=== PATIENT | male | born 1955 | race African-American/Black ===

== ENCOUNTER 2019-01-18 11:11 | Inpatient (IN) | payer OTHER, MEDICAID ==
[~2019-01-18] VITALS: Ht 172.7 cm; Wt 66.7 kg
[~2019-01-18 11:11] MED LIST: ATEN-60 PO; HYDR12.55 PO; TRAM50TA2 PO
[2019-01-18 11:46] LABS: Basophils # (auto) 0 uL; Basophils % (auto) 0.3 % (0.0-2.0); Eosinophils # (auto) 0.2 uL; Eosinophils % (auto) 3.4 % (0.0-7.0); Hemoglobin 12.5 g/dL (13.5-17.5); Lymphocytes # (auto) 1.9 uL; Lymphocytes % (auto) 33.1 % (10.0-50.0); Mean Corpuscular Hemoglobin 25.6 pg (28.0-32.0); Mean Corpuscular Hgb Conc. 32.8 g/dL (32.0-36.0); Mean Corpuscular Volume 77.9 fL (80.0-100.0); Monocytes # (auto) 0.8 uL; Monocytes % (auto) 13.7 % (0.0-12.0); Neutrophils # (auto) 2.8 uL; Neutrophils % (auto) 49.5 % (37.0-80.0); Nucleated Red Blood Cells % 0.1 %; Platelet Count (auto) 176 10^3/uL (140-450); Red Blood Cells 4.87 10^6/uL (4.5-5.90); Red Cell Distribution Width 13.5 % (11.8-14.3); White Blood Cell 5.6 10^3/uL (4.4-10.8)
[2019-01-18 12:19] LABS: Albumin 3.1 g/dL (3.4-5.0); BUN/Creatinine Ratio 21.9; Calcium 9.7 mg/dL (8.5-10.1); Potassium 3.6 mmol/L (3.5-5.1)
[2019-01-18 12:21] LABS: Bilirubin, Total 0.5 mg/dL (0.2-1.0); Total Protein 6.7 g/dL (6.4-8.2)
[2019-01-18] MEDS ORDERED: MORPHINE SULFATE 4 MG/ML SYR/VIAL IV ONE (12:45)
[2019-01-18] MEDS ORDERED: ONDANSETRON HCL 4 MG/2 ML VIAL IV ONE (12:45)
[2019-01-18] MEDS ORDERED: SODIUM CHLORIDE 0.9% 1,000 ML IV ONE ×2 (12:47)
[2019-01-18 13:16] LABS: Urine Amorphous Crystal FEW /hpf (None Seen); Urine Bacteria FEW /hpf (None Seen); Urine Blood Negative /uL (Negative); Urine Mucus FEW (None Seen); Urine Specific Gravity 1.018 (1.001-1.035); Urine WBC 23 /hpf (0 - 3)
[2019-01-18] MEDS ORDERED: ATOR10TA52 PO (15:51)
[2019-01-18] MEDS ORDERED: HCTZ25T PO (15:51)
[2019-01-18] MEDS ORDERED: NAP500T PO (15:51)
[2019-01-18] MEDS ORDERED: HYDR1CAP27 PO (15:51)
[2019-01-18] MEDS ORDERED: NITROGLYCERIN 0.4 MG SL TAB SL PRN (16:45)
[2019-01-18] MEDS ORDERED: MORPHINE SULF INJ 2 MG/ML SYRINGE 1ML IV PRN (16:45)
[2019-01-18] MEDS ORDERED: cefTRIAXone 1GM/50ML D5W 50 ML IV ONE (17:30)
[2019-01-18] MEDS: SOD CHL 0.9%/ KCL 20MEQ 1,000 ML IV SCH (18:38)
--- NOTE | 2019-01-18 19:50 | NUR ---
Admission Note Pt admitted to room 273-B in stable cond. Pt oriented to room and procedures and POC discussed with pt. Pt verbalizes understanding. Pt is with positive BS in all 4 quadrants and pt denies any abd pain or n/v at this time. Bed is low, wheels are locked, and call light is with in reach. Bed alarm is set for pt safety.
[2019-01-18 21:51] VITALS: BP 159/96
[2019-01-18] MEDS: metroNIDAZOLE 500MG/100ML 100 ML IV SCH (21:51)
[2019-01-18] MEDS: FAMOTIDINE (10MG/ML) 2ML VL IV SCH (21:51)
[2019-01-19] VITALS (7 sets, daily range): BP systolic 150–167; BP diastolic 79–98
[2019-01-19] MEDS: SOD CHL 0.9%/ KCL 20MEQ 1,000 ML IV SCH (02:45)
[2019-01-19] MEDS: metroNIDAZOLE 500MG/100ML 100 ML IV SCH ×2 (06:24→12:06)
--- NOTE | 2019-01-19 07:10 | NUR ---
Opening Shift Note Assumed care of patient, awake and alert. Patient NPO. No S/S of distress/SOB or pain. Instructed on POC and to call for assist PRN, bed in locked and lowest position and call light within reach. Will continue to monitor for changes Q1hr and PRN.
[2019-01-19] MEDS ORDERED: MORPHINE SULF INJ 2 MG/ML SYRINGE 1ML ONE (08:33)
[2019-01-19] MEDS: MORPHINE SULF INJ 2 MG/ML SYRINGE 1ML IV PRN (08:46)
[2019-01-19] MEDS ORDERED: cefTRIAXone 1GM/50ML D5W 50 ML IV SCH (09:00)
[2019-01-19] MEDS: FAMOTIDINE (10MG/ML) 2ML VL IV SCH ×2 (10:02→22:16)
--- NOTE | 2019-01-19 14:32 | NUR ---
Dr. Barboza bedside with patient discussing plan of care.
[2019-01-19] MEDS ORDERED: ATENOLOL 25 MG TAB PO ONE (15:15)
[2019-01-19] MEDS: TAMSULOSIN HYDROCHLORIDE 0.4 MG CAP PO SCH (18:05)
--- NOTE | 2019-01-19 19:05 | NUR ---
OPENING NOTE- NOC SHIFT PATIENT IS ALERT AND ORIENTED X4. PATIENT IS LYING FLAT ON BED AND STATES THIS IS HOW HE PREFERS TO SLEEP. BED IS LOCKED IN LOWEST POSITION, BED RAILS ARE UP X2 FOR SAFETY PRECAUTIONS. BEDSIDE TABLE WITH PERSONAL BELONGINGS WITHIN REACH, CALL LIGHT IS WITHIN REACH. DISCUSSED POC WITH PATIENT AND INSTRUCTED PATIENT TO CALL PRN; PATIENT VERBALIZED UNDERSTANDING. WILL CONTINUE TO MONITOR Q1H AND PRN. NO S/SX OF DISTRESS, SOB OR PAIN.
[2019-01-19] MEDS: hydrOXYzine 25 MG TAB or CAP PO SCH (22:16)
[2019-01-20] VITALS (7 sets, daily range): BP systolic 144–158; BP diastolic 82–89
--- NOTE | 2019-01-20 07:15 | NUR ---
ENDORSED PATIENT CARE TO DAY SHIFT NURSE KYLER MACIEL. NO S/SX OF DISTRESS, SOB OR PAIN.
[2019-01-20] MEDS: FAMOTIDINE (10MG/ML) 2ML VL IV SCH ×2 (09:57→21:09)
[2019-01-20] MEDS: ATENOLOL 50 MG TAB PO SCH (09:57)
--- NOTE | 2019-01-20 11:53 | NUR ---
Nutrition Consult/assessment Notes: please see attached link for complete assessment Est. Needs BW 70 [id number] kcal (25-30 kcal/kgBW), 70-84 gms pro (1.0-1.2gms/kgBW). Will continue to monitor pertinent labs and reassess nutrient need prn. Addendum: 01/20/19 at [address] Amended: Links added.
[2019-01-20 12:30] LABS: INR 1.23 (0.9-1.15); Partial Thromboplastin Time 32.3 sec (23.64-32.05)
[2019-01-20] MEDS ORDERED: IOHEXOL 300 MG/ML 100ML BOTTLE IJ ONE (16:45)
[2019-01-20] MEDS: TAMSULOSIN HYDROCHLORIDE 0.4 MG CAP PO SCH (17:01)
--- NOTE | 2019-01-20 19:05 | NUR ---
OPENING NOTE- NOC SHIFT PATIENT IS ALERT AND ORIENTED X4, ANSWERS IN COMPLETE SENTENCES AND MAKES APPROPRIATE EYE CONTACT. BED IS LOCKED AT LOWEST POSITION, BED RAILS UP X2. PATIENT STATES THAT HE PREFERS TO LAY FLAT IN BED; STATES THAT THIS THE COMFORTABLE POSITION IN WHICH HE SLEEPS AT HOME. PATIENT STATES THAT HE HAS NOT BEEN NPO BUT THAT HE WILL BE NPO AT MID NIGHT FOR PLANNED PROCEDURE ON 01/21/19. DISCUSSED POC WITH PATIENT AND INSTRUCTED PATIENT TO CALL PRN; PATIENT VERBALIZED UNDERSTANDING. WILL CONTINUE TO MONITOR Q1H AND PRN. FAMILY AT BEDSIDE.
[2019-01-20] MEDS: MORPHINE SULF INJ 2 MG/ML SYRINGE 1ML IV PRN (20:15)
[2019-01-20] MEDS: ONDANSETRON HCL 4 MG/2 ML VIAL IV PRN (20:15)
--- NOTE | 2019-01-20 20:15 | NUR ---
FAMILY REQUESTS TO SPEAK WITH DOCTOR. FAMILY WANTS UPDATE ON CT SCAN RESULTS AND PLAN OF CARE. PASTOR DRUMMOND IS PATIENT'S NIECE AND NOK, . WILL ALSO ADD PHYSICAL NOTE ON HARD CHART FOR .
[2019-01-20] MEDS: hydrOXYzine 25 MG TAB or CAP PO SCH (21:10)
[2019-01-20] MEDS: LORazepam 2MG/ML-1ML VIAL IV PRN (21:10)
--- NOTE | 2019-01-21 03:32 | NUR ---
NOK PHONE NUMBER CORRECTION. CORRECT NUMBER UPDATED ON SYSTEM AND IS PASTOR DRUMMOND [phone]
[2019-01-21 05:00] VITALS: BP 158/89
--- NOTE | 2019-01-21 06:51 | NUR ---
PATIENT OF FLOOR TO OR
[2019-01-21] MEDS ORDERED: ceFAZolin 1GM/50ML 50 ML IV ONE (07:02)
--- NOTE | 2019-01-21 07:05 | NUR ---
CALLED DANIELLE DRUMMOND [phone] TO MAKE HER AWARE THAT PATIENT WAS SENT TO OR FOR SCHEDULED PROCEDURE.
--- NOTE | 2019-01-21 07:08 | NUR ---
CLOSING NOTE- NOC SHIFT ENDORSED PATIENT CARE TO DAY SHIFT NURSE KYLER MACIEL. PATIENT OFF FLOOR TO OR FOR SCHEDULED PROCEDURE.
[2019-01-21] MEDS ORDERED: LIDOCAINE 1% HCL (LOCAL ANESTH.) INJ 20ML MDV ONE (07:34)
[2019-01-21] MEDS: BUPIVACAINE W/ EPINEPH 0.25% INJ 50ML MDV ONE ×2 (07:34→08:59)
[2019-01-21] MEDS ORDERED: SUCCINYLCHOLINE CHLORIDE 20 MG/ML 10ML VIAL IV ONE (07:42)
[2019-01-21] MEDS ORDERED: MEPERIDINE HCL (50 MG/ML) 1 ML VIAL ONE ×2 (07:46→08:26)
[2019-01-21] MEDS ORDERED: MIDAZOLAM HCL 1MG/1ML-2 ML VIAL ONE (07:46)
[2019-01-21] MEDS ORDERED: fentaNYL CITRATE 100 MCG/2 ML VL ONE (07:46)
[2019-01-21] MEDS ORDERED: LABETALOL HCL 5 MG/ML 4ML SYRINGE IV PRN (08:15)
[2019-01-21] MEDS ORDERED: MIDAZOLAM HCL 1MG/1ML-2 ML VIAL IV PRN (08:15)
[2019-01-21] MEDS ORDERED: MORPHINE SULF INJ 2 MG/ML SYRINGE 1ML IV PRN (08:15)
[2019-01-21] MEDS ORDERED: ONDANSETRON HCL 4 MG/2 ML VIAL IV PRN (08:15)
[2019-01-21] MEDS ORDERED: KETOROLAC TROMETH 30 MG/ML 1ML VIAL IV ONE (08:15)
[2019-01-21] MEDS ORDERED: ePHEDrine SULFATE 50 MG/ML AMP IV PRN (08:15)
[2019-01-21] MEDS ORDERED: HYDROmorphone HCL 2 MG/ML VL IV PRN (08:15)
[2019-01-21] MEDS ORDERED: DexAMETHasone SOD PHOS 10MG/1ML VIAL INJ ONE (08:26)
[2019-01-21] MEDS ORDERED: PROPOFOL 10 MG/ML 20 ML IV ONE (08:26)
[2019-01-21] MEDS: FAMOTIDINE (10MG/ML) 2ML VL IV SCH ×2 (09:05→22:07)
[2019-01-21] MEDS: ATENOLOL 50 MG TAB PO SCH (09:06)
[2019-01-21 10:11] LABS: Basophils # (auto) 0 uL; Basophils % (auto) 0.3 % (0.0-2.0); Eosinophils # (auto) 0 uL; Eosinophils % (auto) 0.4 % (0.0-7.0); Hematocrit 36.4 % (41.0-53.0); Lymphocytes % (auto) 9.3 % (10.0-50.0); Mean Corpuscular Volume 77.7 fL (80.0-100.0); Red Blood Cells 4.68 10^6/uL (4.5-5.90)
[2019-01-21 10:13] LABS: Hemoglobin 11.9 g/dL (13.5-17.5); Mean Corpuscular Hemoglobin 25.4 pg (28.0-32.0); Mean Corpuscular Hgb Conc. 32.7 g/dL (32.0-36.0); Monocytes # (auto) 0.5 uL; Monocytes % (auto) 5.1 % (0.0-12.0); Neutrophils # (auto) 8.7 uL; Neutrophils % (auto) 84.9 % (37.0-80.0); Nucleated Red Blood Cells % 0.1 %; Platelet Count (auto) 169 10^3/uL (140-450); Red Cell Distribution Width 13.2 % (11.8-14.3); White Blood Cell 10.3 10^3/uL (4.4-10.8)
[2019-01-21 10:32] LABS: Albumin 2.5 g/dL (3.4-5.0); BUN/Creatinine Ratio 17.7; Calcium 8.6 mg/dL (8.5-10.1); Potassium 3.4 mmol/L (3.5-5.1)
[2019-01-21 10:35] LABS: Bilirubin, Total 0.9 mg/dL (0.2-1.0); Total Protein 6.7 g/dL (6.4-8.2)
[2019-01-21] MEDS: SOD CHL 0.45% WITH 20MEQ KCL 1,000 ML IV SCH (12:10)
[2019-01-21 13:00] VITALS: BP 172/98
[2019-01-21] MEDS ORDERED: PHENYLEPHRINE HCL 10 MG/ML VL IV ONE (15:47)
--- NOTE | 2019-01-21 15:53 | NUR ---
Assessment Pt is a 63 yr old alert and oriented male. Prior to admit, pt lived with niece, Yola, who is his [facility] caregiver. Savita helps to cook, clean and transportation. Prior to admit, pt was ambulatory and independent with ADL's. Pt receives income and does not have an AD on file. Pt states that he will feel safe to go back home upon d/c. Pt stated that either Savita or his nephew will transport him home. No needs or concerns expressed at this time. Addendum: 01/21/19 at 1558 by ELI NEWSOME Amended: Links added.
[2019-01-21 17:00] VITALS: BP 159/94
[2019-01-21] MEDS: TAMSULOSIN HYDROCHLORIDE 0.4 MG CAP PO SCH (18:10)
--- NOTE | 2019-01-21 19:10 | NUR ---
OPENING NOTE- NOC SHIFT PATIENT IS IN BED POST HERNIA REPAIR EARLY THIS MORNING. PATIENT STATES THAT PAIN IS PRESENT 6/10 BUT THAT IT IS TOLERABLE. DRESSING AT LOWER LEFT ABDOMEN IS DRY AND INTACT. FAMILY IS AT BEDSIDE. DISCUSSED POC WITH PATIENT AND INSTRUCTED PATIENT TO CALL PRN; PATIENT VERBALIZED UNDERSTANDING.
--- NOTE | 2019-01-21 19:45 | NUR ---
IV removal IV DC'd with clean sterile technique, catheter fully intact. Pressure dressing applied to site. Patient tolerated well.
--- NOTE | 2019-01-21 19:45 | NUR ---
IV insertion IV access obtained, via clean sterile technique by inserting 22 gauge catheter at LEFT HAND after 1 attempt(s). IV secured properly. No trauma to site. Patient tolerated well.
[2019-01-21] MEDS: MORPHINE SULF INJ 2 MG/ML SYRINGE 1ML IV PRN (20:16)
[2019-01-21] MEDS: ONDANSETRON HCL 4 MG/2 ML VIAL IV PRN (20:17)
--- NOTE | 2019-01-21 21:50 | NUR ---
PATIENT AMBULATING TO ROOM DOOR; ENCOURAGED PATIENT TO WALK FREQUENTLY. STEADY GAIT NOTED. BREATH SOUNDS EVEN. NO S/SX OF DISTRESS OR SOB. DRESSING AT LOWER LEFT ABDOMEN DRY AND INTACT. ASSISTED PATIENT BACK INTO BED AND INSTRUCTED PATIENT TO CALL PRN; PATIENT VERBALIZED UNDERSTANDING.
[2019-01-21 21:59] VITALS: BP 113/79
[2019-01-21] MEDS: hydrOXYzine 25 MG TAB or CAP PO SCH (22:07)
[2019-01-22] MEDS: SOD CHL 0.45% WITH 20MEQ KCL 1,000 ML IV SCH ×2 (00:35→14:09)
[2019-01-22] MEDS: MORPHINE SULF INJ 2 MG/ML SYRINGE 1ML IV PRN ×3 (01:39→19:52)
[2019-01-22] MEDS: ONDANSETRON HCL 4 MG/2 ML VIAL IV PRN (01:39)
[2019-01-22 04:54] VITALS: BP 160/89
[2019-01-22 08:00] VITALS: BP 140/77
[2019-01-22 09:00] VITALS: BP 140/77
[2019-01-22] MEDS: FAMOTIDINE (10MG/ML) 2ML VL IV SCH ×2 (10:06→21:40)
[2019-01-22] MEDS: ATENOLOL 50 MG TAB PO SCH (10:06)
[2019-01-22 13:00] VITALS: BP 145/70
--- NOTE | 2019-01-22 15:32 | NUR ---
Nutrition Follow-up Notes Wt.: 67.5 kg s of yesterday. Pt's asleep, no immediate family member at bedside during rounds this morning. Pt's s/p Repair of left inguinal hernia (indirect) yesterday, NPO, no signs of distress noted earlier, noted to start today on Soft diet and for active Aldo/Oncology consult. Est. Needs BW 70 [id number] kcal (25-30 kcal/kgBW), 70-84 gms pro (1.0-1.2gms/kgBW). Will continue to monitor pertinent labs and reassess nutrient need prn. Labs: Gluc 117 H, Cl 110 H, K 3.4 L, Alb 2.5 L Skin: Ludwin scale 21, low risk, skin intact per pe teacher. GI: Pt had 3 ml stool output this morning per pe teacher. PES: Increased nutrient needs r/t acute/chronic medical condition aeb with hernia unable to eat and loosing wt, mod hypoalbuminemia, s/p surgery. Altered nutrition related lab values r/t current/chronic medical condition aeb hyperglycemia, hyperchloremia, hypokalemia and mod hypoalbuminemia Will continue to monitor PO intake, skin status, pertinent labs and weight trend. F/u in 3 to 5 days. Rec.: 1.) Continue close supervision during meals. 2.) If Albumin continues trending down, consider Prostat 1 pkt BID. 3.) If pt's PO intake inadequate (<75%), consider Ensure Enlive 1 carton TID. 4.) Refer pt to CDE/RD for further nutrition education and weight monitoring upon discharge. 5.) Continue current plan of care.
[2019-01-22 16:45] VITALS: BP 148/76
[2019-01-22] MEDS: TAMSULOSIN HYDROCHLORIDE 0.4 MG CAP PO SCH (18:20)
--- NOTE | 2019-01-22 20:00 | NUR ---
Opening Shift Note Assumed care of patient, awake and alert. No S/S of distress/SOB or pain. Instructed on POC and to call for assist PRN, will continue to monitor for changes Q1hr and PRN.
[2019-01-22] MEDS: hydrOXYzine 25 MG TAB or CAP PO SCH (21:40)
[2019-01-22 22:00] VITALS: BP 146/84
[2019-01-23] MEDS: SOD CHL 0.45% WITH 20MEQ KCL 1,000 ML IV SCH ×2 (03:15→16:41)
[2019-01-23 05:00] VITALS: BP 155/92
--- NOTE | 2019-01-23 06:00 | NUR ---
IV removal IV DC'd IN LEFT HAND with clean sterile technique, catheter fully intact. Pressure dressing applied to site. Patient tolerated well. IV insertion IV access obtained, via clean sterile technique by inserting 22 gauge catheter at LEFT FOREARM after 1 attempt(s). IV secured properly. No trauma to site. Patient tolerated well.
[2019-01-23 08:00] VITALS: BP 137/87
[2019-01-23 09:00] VITALS: BP 137/87
[2019-01-23] MEDS: FAMOTIDINE (10MG/ML) 2ML VL IV SCH ×2 (09:28→22:20)
[2019-01-23] MEDS: ATENOLOL 50 MG TAB PO SCH (09:29)
[2019-01-23] MEDS: amLODIPine BESYLATE 5 MG TAB PO SCH (10:20)
[2019-01-23] MEDS ORDERED: IOHEXOL 300 MG/ML 100ML BOTTLE IJ ONE (12:43)
[2019-01-23 13:00] VITALS: BP 150/84
--- NOTE | 2019-01-23 16:40 | NUR ---
called Aly Enamorado earlier, no call back to see about getting pt d/c
[2019-01-23 16:50] VITALS: BP 136/80
[2019-01-23] MEDS: TAMSULOSIN HYDROCHLORIDE 0.4 MG CAP PO SCH (17:43)
[2019-01-23] MEDS: MORPHINE SULF INJ 2 MG/ML SYRINGE 1ML IV PRN (18:49)
[2019-01-23] MEDS: LORazepam 2MG/ML-1ML VIAL IV PRN (18:57)
--- NOTE | 2019-01-23 19:30 | NUR ---
OPENING SHIFT NOTE Assumed care of patient, awake and alert sitting up in bed. Respiration even and unlabored. Midst conversation patient begins crying, stating he is "so scared about the cancer", comfort provided and patient encouraged to express feelings and will provide with support group information. Denies pain at this moment. Discussed POC and to call for assistance as needed. Patient verbalizes understanding. Bed in lowest position, breaks locked, bed alarm on, side rails up x2, call light with in reach. Will continue to monitor Q1hr and PRN.
[2019-01-23 22:00] VITALS: BP 141/84
[2019-01-23] MEDS: hydrOXYzine 25 MG TAB or CAP PO SCH (22:20)
--- NOTE | 2019-01-23 23:00 | NUR ---
PATIENT AMBULATING HALLS INDEPENDENTLY
[2019-01-24 05:00] VITALS: BP 158/78
[2019-01-24] MEDS: SOD CHL 0.45% WITH 20MEQ KCL 1,000 ML IV SCH (05:52)
--- NOTE | 2019-01-24 07:35 | NUR ---
CARE ENDORSED TO DAY SHIFT GRIS MACIEL
--- NOTE | 2019-01-24 07:55 | NUR ---
Morning note Assumed care of patient, awake and alert sitting up in bed. Respiration even and unlabored. No S/S of distress noted. Discussed POC and to call for assistance as needed. Bed in lowest position, breaks locked, side rails up x2, call light with in reach. Will continue to monitor Q1hr and PRN.
[2019-01-24] MEDS ORDERED: TAM04C PO (08:54)
[2019-01-24] MEDS ORDERED: AML5T PO (08:54)
[2019-01-24] MEDS ORDERED: ATE50T PO (08:54)
[2019-01-24 09:00] VITALS: BP 138/88
[2019-01-24] MEDS ORDERED: HCTZ 25 MG TAB PO ONE (09:00)
[2019-01-24] MEDS ORDERED: POTASSIUM CHL 20 Meq TABLET PO ONE (09:00)
[2019-01-24] MEDS: ATENOLOL 50 MG TAB PO SCH (09:28)
[2019-01-24] MEDS: amLODIPine BESYLATE 5 MG TAB PO SCH (09:29)
[2019-01-24] MEDS: FAMOTIDINE (10MG/ML) 2ML VL IV SCH (10:00)
[2019-01-24 12:46] VITALS: BP 139/81
--- NOTE | 2019-01-24 14:55 | NUR ---
Discharge instructions given as ordered. Encourage to follow up with PMD as instructed. All questions and concerns addressed. Patient verbalized understanding. Medication reconciliation form completed and copy given to patient. No home medications held in Pharmacy and none returned to patient, and No needed vaccines given. IV removed with catheter intact, pressure dressing applied. Patient is resting in bed awaiting for family to transport him home.
--- NOTE | 2019-01-24 15:50 | NUR ---
Patient left with family. With out notifying nurse.
== END 2019-01-24 13:50 | disposition home or self-care (01) | DRG 351 ==
LOC: ER 11:15 → OVERFLOW 11:16 → WEST WING 19:54
PROVIDERS: ADMIT Nurse Practitioner Acute Care; ATTEND Internal Medicine
PROC: 0YQ60ZZ Repair Left Inguinal Region, Open Approach (ICD-10-PCS; principal; 2019-01-21 07:43)
DX: K40.30 Unilateral inguinal hernia, with obstruction, without gangrene, not specified as recurrent (principal); E44.0 Moderate protein-calorie malnutrition; K42.0 Umbilical hernia with obstruction, without gangrene; D50.9 Iron deficiency anemia, unspecified; I10 Essential (primary) hypertension; K57.30 Diverticulosis of large intestine without perforation or abscess without bleeding; F41.9 Anxiety disorder, unspecified; K80.20 Calculus of gallbladder without cholecystitis without obstruction; M19.90 Unspecified osteoarthritis, unspecified site; N40.0 Benign prostatic hyperplasia without lower urinary tract symptoms; Z68.22 Body mass index [BMI] 22.0-22.9, adult; Z79.899 Other long term (current) drug therapy; Z90.5 Acquired absence of kidney
CPT/HCPCS: 36415; 71045; 71260; 74176; 74178; 78306; 80053; 81001; 83615; 84153; 85025; 85610; 85730; 86850; 86900; 86901; 88108; 88302; 93005; 96365; 96366; 96375; G0378; J0330; J0690; J0696; J1100; J2001; J2250; J2405; J2704; J3490

== ENCOUNTER 2019-09-16 07:00 | Inpatient (IN) | payer OTHER, MEDICAID ==
[~2019-09-16] VITALS: Ht 175.3 cm; Wt 85.1 kg
[~2019-09-16 07:00] MED LIST changes: +AML5T PO; +HCTZ25T PO; +HYDR-3682 PO; -HYDR12.55 PO; +MIRT1TAB PO; +NAP500T PO; -TRAM50TA2 PO
[2019-09-16] MEDS ORDERED: LIDOCAINE W/ EPINEPHRINE 1 % INJ 30ML ONE (14:02)
[2019-09-16] MEDS ORDERED: BUPIVACAINE 0.25% INJ 50ML VIAL ONE (14:02)
[2019-09-16] MEDS ORDERED: MIDAZOLAM HCL 1MG/1ML-2 ML VIAL ONE (14:46)
[2019-09-16] MEDS ORDERED: fentaNYL CITRATE 100 MCG/2 ML VL ONE (15:11)
[2019-09-16] MEDS ORDERED: ROCURONIUM 10MG/ML 10ML VIAL IV ONE (15:14)
[2019-09-16] MEDS ORDERED: PROPOFOL 10 MG/ML 20 ML IV ONE (15:22)
[2019-09-16] MEDS ORDERED: MANNITOL FTV 25% 12.5 GM/50 ML 50 ML IV ONE ×2 (15:45→16:22)
[2019-09-16] MEDS ORDERED: HYDROmorphone HCL 2 MG/ML VL ONE (15:55)
[2019-09-16] MEDS ORDERED: ACETAMINOPHEN/CODEINE#3 (300/30mg) TAB PO PRN (17:15)
[2019-09-16] MEDS ORDERED: diphenhdrAMINE HCL 50 MG/1 ML VL IV PRN (17:15)
[2019-09-16] MEDS ORDERED: HYDROmorphone HCL 2 MG/ML VL IV PRN (17:30)
[2019-09-16] MEDS ORDERED: hydrALAZINE HCL 20 MG/ML VL IV PRN (17:30)
[2019-09-16] MEDS ORDERED: ONDANSETRON HCL 4 MG/2 ML VIAL IV PRN (17:30)
[2019-09-16] MEDS ORDERED: ePHEDrine SULFATE 50 MG/ML AMP IV PRN (17:30)
[2019-09-16] MEDS: HYDROmorphone HCL 2 MG/ML VL IV PRN ×5 (17:35→22:17)
[2019-09-16 19:32] VITALS: BP 157/93
[2019-09-16 20:06] LABS: Calcium 7.6 mg/dL (8.5-10.1); Potassium 3.6 mmol/L (3.5-5.1)
[2019-09-16 20:09] LABS: BUN/Creatinine Ratio 8.6
[2019-09-16] MEDS: D5W/SOD CHL 0.45% 1,000 ML IV SCH (20:12)
[2019-09-16] MEDS: ONDANSETRON HCL 4 MG/2 ML VIAL IV PRN (20:17)
[2019-09-16 22:00] VITALS: BP 149/93
[2019-09-16] MEDS: MIRTAZAPINE 7.5 MG PO SCH (22:00)
[2019-09-17] VITALS (7 sets, daily range): BP systolic 132–161; BP diastolic 77–103
[2019-09-17] MEDS: D5W/SOD CHL 0.45% 1,000 ML IV SCH ×3 (01:19→16:47)
[2019-09-17] MEDS: HYDROmorphone HCL 2 MG/ML VL IV PRN ×4 (04:29→23:31)
[2019-09-17] MEDS: ONDANSETRON HCL 4 MG/2 ML VIAL IV PRN ×2 (08:51→16:38)
[2019-09-17] MEDS: HCTZ 25 MG TAB PO SCH (09:20)
[2019-09-17] MEDS: amLODIPine BESYLATE 5 MG TAB PO SCH (09:21)
[2019-09-17] MEDS: ATENOLOL 25 MG TAB PO SCH (09:22)
[2019-09-17] MEDS: hydrOXYzine 25 MG TAB or CAP PO SCH (09:22)
[2019-09-17] MEDS: MIRTAZAPINE 7.5 MG PO SCH (22:00)
[2019-09-18] MEDS: D5W/SOD CHL 0.45% 1,000 ML IV SCH ×3 (01:00→17:11)
[2019-09-18] MEDS: HYDROmorphone HCL 2 MG/ML VL IV PRN ×4 (03:51→22:28)
[2019-09-18 05:38] VITALS: BP 149/90
[2019-09-18 05:55] VITALS: BP 134/69
[2019-09-18] MEDS: ONDANSETRON HCL 4 MG/2 ML VIAL IV PRN (08:27)
[2019-09-18 08:51] VITALS: BP 148/94
[2019-09-18] MEDS: ATENOLOL 25 MG TAB PO SCH (10:27)
[2019-09-18] MEDS: hydrOXYzine 25 MG TAB or CAP PO SCH (10:29)
[2019-09-18] MEDS: amLODIPine BESYLATE 5 MG TAB PO SCH (10:29)
[2019-09-18] MEDS: HCTZ 25 MG TAB PO SCH (10:30)
[2019-09-18 12:39] VITALS: BP 153/95
[2019-09-18 16:18] VITALS: BP 137/92
[2019-09-18 22:00] VITALS: BP 142/76
[2019-09-18] MEDS: MIRTAZAPINE 7.5 MG PO SCH (22:00)
[2019-09-19 05:00] VITALS: BP 156/92
[2019-09-19] MEDS: D5W/SOD CHL 0.45% 1,000 ML IV SCH ×2 (06:10→11:03)
[2019-09-19] MEDS: HYDROmorphone HCL 2 MG/ML VL IV PRN ×2 (06:12→15:43)
[2019-09-19 08:00] VITALS: BP 132/90
[2019-09-19 08:59] VITALS: BP 132/90
[2019-09-19] MEDS: ATENOLOL 25 MG TAB PO SCH (10:00)
[2019-09-19] MEDS: hydrOXYzine 25 MG TAB or CAP PO SCH (10:00)
[2019-09-19] MEDS: HCTZ 25 MG TAB PO SCH (11:02)
[2019-09-19] MEDS: amLODIPine BESYLATE 5 MG TAB PO SCH (11:02)
[2019-09-19 13:00] VITALS: BP 132/86
[2019-09-19 16:17] VITALS: BP 132/86
[2019-09-19 17:10] VITALS: BP 146/88
== END 2019-09-19 18:00 | disposition home or self-care (01) | DRG 658 ==
LOC: EDSTATUS 07:00 → OVERFLOW 13:07 → TELE-CENTR 18:31
PROVIDERS: ADMIT Urology; ATTEND Urology
PROC: 0TB00ZZ Excision of Right Kidney, Open Approach (ICD-10-PCS; principal; 2019-09-18)
PROC: 07BD0ZZ Excision of Aortic Lymphatic, Open Approach (ICD-10-PCS; 2019-09-18)
DX: D41.01 Neoplasm of uncertain behavior of right kidney (principal); Z11.59 Encounter for screening for other viral diseases
CPT/HCPCS: 36415; 80048; 82962; 86850; 86900; 86901; G0378; J2250; J2405; J2704; J3490; J7060